=== PATIENT | male | born 1960 | race Caucasian/White ===

== ENCOUNTER 2018-05-08 07:38 | Emergency (ER) | payer OTHER ==
[2018-05-08 07:47] VITALS: BP 154/83
--- NOTE | 2018-05-08 08:03 | ER Document Report ---
ED General - General Chief Complaint: Congestion Stated Complaint: FLU SYMPTOMS Time Seen by Provider: 05/08/18 07:53 TRAVEL OUTSIDE OF THE [place] IN LAST 30 DAYS: No - HPI Patient complains to provider of: Sinus congestion productive sputum Notes: Patient coming in for sinus congestion headaches sputum ongoing since Tuesday. Patient states that history of smoking the past. Denies any recent travel denies any sick contacts. Patient states that he is not been on any antibiotics. Patient states no relief of symptoms with Mucinex and over-the- counter cough cold medication. - Related Data Allergies/Adverse Reactions: bacitracin Allergy (Verified 05/08/18 07:39) Penicillins Allergy (Verified 05/08/18 07:39) Past Medical History - Social History Smoking Status: Never Smoker Frequency of alcohol use: None Drug Abuse: None Family History: Reviewed & Not Pertinent Patient has suicidal ideation: No Patient has homicidal ideation: No Renal/ Medical History: Denies: Hx Peritoneal Dialysis - Immunizations Hx Diphtheria, Pertussis, Tetanus Vaccination: Yes Review of Systems - Review of Systems Constitutional: No symptoms reported EENT: Other - Sinus pressure Cardiovascular: No symptoms reported Respiratory: No symptoms reported Gastrointestinal: No symptoms reported Genitourinary: No symptoms reported Male Genitourinary: No symptoms reported Musculoskeletal: No symptoms reported Skin: No symptoms reported Hematologic/Lymphatic: No symptoms reported Neurological/Psychological: No symptoms reported -: Yes All other systems reviewed and negative Physical Exam - Vital signs Vitals: Temp Pulse Resp BP Pulse Ox 97.6 F 90 18 154/83 H 94 05/08/18 07:43 05/08/18 07:43 05/08/18 07:43 05/08/18 07:43 05/08/18 07:43 Interpretation: Normal - General General appearance: Appears well, Alert - HEENT Head: Normocephalic, Atraumatic Eyes: Normal Conjunctiva: Normal Cornea: Normal Extraocular movements intact: Yes Pupils: PERRL Ears: Normal External canal: Normal Tympanic membrane: Normal Sinus: Frontal - Tenderness Nasal: Normal Mouth/Lips: Normal Mucous membranes: Normal Pharynx: Normal Neck: Normal - Respiratory Respiratory status: No respiratory distress Chest status: Nontender Breath sounds: Normal Chest palpation: Normal - Cardiovascular Rhythm: Regular Heart sounds: Normal auscultation Murmur: No - Abdominal Inspection: Normal Distension: No distension Bowel sounds: Normal Tenderness: Nontender Organomegaly: No organomegaly - Back Back: Normal, Nontender - Extremities General upper extremity: Normal inspection, Nontender, Normal color, Normal ROM , Normal temperature General lower extremity: Normal inspection, Nontender, Normal color, Normal ROM , Normal temperature, Normal weight bearing. No: Bernadine's sign - Neurological Neuro grossly intact: Yes Cognition: Normal Orientation: AAOx4 [place] Coma Scale Eye Opening: Spontaneous [place] Coma Scale Verbal: Oriented [place] Coma Scale Motor: Obeys Commands [place] Coma Scale Total: 15 Speech: Normal Motor strength normal: LUE, RUE, LLE, RLE Sensory: Normal - Psychological Associated symptoms: Normal affect, Normal mood - Skin Skin Temperature: Warm Skin Moisture: Dry Skin Color: Normal Course - Re-evaluation Re-evalutation: 05/08/18 15:07 Concern for developing sinusitis infection. Patient was encouraged to take Zyrtec or Claritin [id number] antihistamine control. Continue with the Mucinex to help out with sputum control also start patient on azithromycin for sinus infection. Patient is to understand discharged home. - Vital Signs Vital signs: Temp Pulse Resp BP Pulse Ox 97.6 F 90 18 154/83 H 94 05/08/18 07:43 05/08/18 07:43 05/08/18 07:43 05/08/18 07:43 05/08/18 07:43 Discharge - Discharge Clinical Impression: Sinus infection Qualifiers: Sinusitis location: frontal Chronicity: acute Recurrence: not specified as recurrent Qualified Code(s): J01.10 - Acute frontal sinusitis, unspecified Disposition: HOME, SELF-CARE Instructions: Azithromycin ([facility]), Sinusitis ([facility]) Additional Instructions: Your evaluation is consistent with acute sinusitis. I recommend taking Tylenol Motrin for your pain. Mucinex to help out with your sputum production over-the- counter Claritin or Zyrtec to help out with some your symptoms. We will also start you on azithromycin. Please take this as prescribed make sure you are drinking plenty of fluids to stay well-hydrated follow-up with your primary care physician return to the ER symptoms worsen. Prescriptions: Azithromycin [Zithromax 250 mg Tablet] 250 mg PO ASDIR PRN #6 tablet PRN Reason: Forms: Return to Work
== END 2018-05-08 08:13 | disposition home or self-care (01) ==
LOC: ER 07:38
DX: J01.10 Acute frontal sinusitis, unspecified (principal); R51 Headache; Z88.0 Allergy status to penicillin; Z88.3 Allergy status to other anti-infective agents
CPT/HCPCS: 99283